=== PATIENT | male | born 1990 | race Caucasian/White ===

== ENCOUNTER 2017-11-02 15:34 | Emergency (ER) | payer SELFPAY ==
[~2017-11-02] VITALS: Ht 188 cm; Wt 120.0 kg
[2017-11-02 15:44] VITALS: BP 122/82; PULSE 89; RESP 14; TEMP 98.2; O2SAT 99
[2017-11-02] MEDS ORDERED: OMEP40CA2 PO (15:51)
[2017-11-02] MEDS ORDERED: oxyCODONE/ACETAMINOPHEN 5 MG/325 MG TAB PO ONE (16:00)
[2017-11-02] MEDS ORDERED: LIDOCAINE 1%/EPINEPHrine 1:100,000 SOLN 20 ML VIAL INFIL ONE (16:00)
[2017-11-02] MEDS ORDERED: TETANUS/DIPHTHERIA TOXOID ADULT 0.5 ML VIAL IM ONE (16:30)
--- NOTE | 2017-11-02 16:30 | PD ---
HPI Chief Complaint: Laceration/Skin Injury Time Seen by Provider: 15:56 Travel History International Travel<30 days: No Contact w/Intl Traveler<30days: No Traveled to known affect area: No History of Present Illness HPI 27yo M with no PMH presents to the ED with c/o right big toe laceration after stepping on something while cleaning the [place] today. Said he does not know what he stepped on. Tetanus not up to date. Denies any fever, chest pain, sob , n/v, abdominal pain, focal weakness or numbness. PFSH Past Medical History GERD: Yes Tetanus Vaccination: Unknown Past Surgical History Other Surgery: Yes (nasal surgery) Social History Alcohol Use: No Tobacco Use: Yes Substance Use: No Allergies-Medications (Allergen,Severity, Reaction): Coded Allergies: No Known Allergies (Unverified , 11/02/17) Reported Meds & Prescriptions Reported Meds & Active Scripts Active Tylenol (Acetaminophen) 325 Mg Tab 650 Mg PO Q6H PRN Doxycycline Hyclate 100 Mg Cap 100 Mg PO BID 10 Days Levofloxacin 750 Mg Tablet 750 Mg PO DAILY 7 Days Keflex (Cephalexin) 500 Mg Cap 500 Mg PO Q6H 7 Days Reported Omeprazole 40 Mg Cap 40 Mg PO DAILY Review of Systems Except as stated in HPI: all other systems reviewed are Neg Physical Exam Narrative GENERAL: 27yo M in mild distress. SKIN: Focused skin assessment warm/dry. HEAD: Atraumatic. Normocephalic. EYES: Pupils equal and round. No scleral icterus. No injection or drainage. CARDIOVASCULAR: Regular rate and rhythm. No murmur appreciated. RESPIRATORY: No accessory muscle use. Clear to auscultation. Breath sounds equal bilaterally. GASTROINTESTINAL: Abdomen soft, non-tender, nondistended. MUSCULOSKELETAL: Right foot: +5 cm medial aspect of 1st toe. DP 2+. Sensation intact. NEUROLOGICAL: Awake and alert. No obvious cranial nerve deficits. Motor grossly within normal limits. Normal speech. PSYCHIATRIC: Appropriate mood and affect; insight and judgment normal. Data Data Last Documented VS Vital Signs Date Time Temp Pulse Resp B/P (MAP) Pulse Ox O2 Delivery O2 Flow Rate FiO2 11/02/17 19:07 11/02/17 15:44 98.2 89 14 99 Orders Orders Lidocai-Epi 1%-1:100,000 Inj (Xylocaine- (11/02/17 16:00) Foot, Limited (2vws) (11/02/17 ) Oxycodone-Acetamin 5-325 Mg (Percocet (11/02/17 16:00) Tetanus/Diphtheria Tox Adult (Tetanus/Di (11/02/17 16:30) Wound Care (11/02/17 16:44) Bupivacaine Pf 0.5% Inj (Marcaine Pf 0.5 (11/02/17 16:45) Lidocaine 1% Inj (50 Ml) (Xylocaine 1% I (11/02/17 16:45) Doxycycline (Vibramycin) (11/02/17 18:45) Cephalexin (Keflex) (11/02/17 18:45) Levofloxacin (Levaquin) (11/02/17 18:45) Ed Discharge Order (11/02/17 18:33) MDM Medical Decision Making Medical Screen Exam Complete: Yes Emergency Medical Condition: Yes Differential Diagnosis Laceration vs. foreign body Narrative Course 27yo M with right big toe laceration after getting it cut on something while barefoot in a [place] for work. No other injuries. Pt given 1 percocet for pain. Xray left foot showed no definite radiopaque foreign boy or acute fracture. Laceration repaired by my PA. Pt was in fresh water mcke[place] and need to cover for vibrio. Will do triple antibiotics. Pt updated on tetanus and given first dose of antibiotics. Return precautions given. Diagnosis Primary Impression: Laceration of toe Qualified Codes: S91.111A - Laceration without foreign body of right great toe without damage to nail, initial encounter Patient Instructions: General Instructions Departure Forms: Tests/Procedures Additional Instructions: Please return to the ED in 10-14 days for suture removal. Return to the ED immediately if you have any signs of infection. Med/Other Pt SpecificInfo: Prescription(s) given Scripts Acetaminophen (Tylenol) 325 Mg Tab 650 MG PO Q6H Y for PAIN SCALE 1 TO 4, #20 TAB 0 Refills Prov: Ele Richardson DO 11/02/17 Doxycycline Hyclate (Doxycycline Hyclate) 100 Mg Cap 100 MG PO BID for Infection for 10 Days, #20 CAP 0 Refills Prov: Ele Richardson DO 11/02/17 Levofloxacin (Levofloxacin) 750 Mg Tablet 750 MG PO DAILY for Infection for 7 Days, #7 TAB 0 Refills Prov: Ele Richardson DO 11/02/17 Cephalexin (Keflex) 500 Mg Cap 500 MG PO Q6H for Infection for 7 Days, #28 CAP 0 Refills Prov: Ele Richardson DO 11/02/17 Disposition: 01 DISCHARGE HOME Condition: Stable Ele Richardson DO Nov 02, 2017 16:30
--- NOTE | 2017-11-02 16:30 | RADRPT ---
EXAM DATE/TIME: 11/02/2017 16:09 [facility] COMPARISON: No previous studies available for comparison. INDICATIONS : Foreign body. Cut on glass. Laceration on first distal phalynx MEDICAL HISTORY : None. SURGICAL HISTORY : None. ENCOUNTER: Initial ACUITY: 1 day PAIN SCORE: 10/10 LOCATION: Right Foot. FINDINGS: Soft tissue laceration and swelling overlying the lateral tip of the left first digit. No definite ra diopaque foreign bodies. Osseous structures appear intact. Joint spaces are maintained. CONCLUSION: 1. No definite radiopaque foreign body or acute fracture. Livan Mckenzie MD on November 02, 2017 at 16:26 Board Certified Radiologist. This report was verified electronically.
[2017-11-02] MEDS ORDERED: BUPIVACAINE HCL PF 0.5% 10 ML VIAL INFIL ONE (16:45)
[2017-11-02] MEDS ORDERED: LIDOCAINE HCL 1% 50 ML VIAL INFIL ONE (16:45)
--- NOTE | 2017-11-02 17:24 | PD ---
Physical Exam Date Seen by Provider: Nov 02, 2017 Time Seen by Provider: 17:22 Narrative 27-year-old male that presents to the ED for violation laceration to the right great toe. I was asked my attending to repair laceration. Please refer to her note. Data Data Last Documented VS Vital Signs Date Time Temp Pulse Resp B/P (MAP) Pulse Ox O2 Delivery O2 Flow Rate FiO2 11/02/17 15:44 98.2 89 14 122/82 (95) 99 Orders Orders Lidocai-Epi 1%-1:100,000 Inj (Xylocaine- (11/02/17 16:00) Foot, Limited (2vws) (11/02/17 ) Oxycodone-Acetamin 5-325 Mg (Percocet (11/02/17 16:00) Tetanus/Diphtheria Tox Adult (Tetanus/Di (11/02/17 16:30) Wound Care (11/02/17 16:44) Bupivacaine Pf 0.5% Inj (Marcaine Pf 0.5 (11/02/17 16:45) Lidocaine 1% Inj (50 Ml) (Xylocaine 1% I (11/02/17 16:45) MDM Medical Record Reviewed: Yes Supervised Visit with JYOTI: No Procedures Procedure Narrative LACERATION LOCATION: right great toe LENGTH: 5 cm NUMBER OF STITCHES/JUAN MANUEL: 15 sutures REPAIR: The area of the laceration was prepped with Betadine and sterilely draped. The laceration was infiltrated with 1% Xylocaine. The wound was copiously irrigated and explored without evidence of foreign body, tendon injury or neurovascular injury. The wound was closed using 4-0 Ethilone. This was a 1 layer repair. A sterile dressing was applied. The patient was advised to keep the dressing clean and dry. Patient tolerated the procedure well. Howard Martinez Nov 02, 2017 17:24
[2017-11-02] MEDS ORDERED: LEVO750T3 PO (18:31)
[2017-11-02] MEDS ORDERED: CEPH-460 PO (18:31)
[2017-11-02] MEDS ORDERED: DOXY100C PO (18:31)
[2017-11-02] MEDS ORDERED: TYLE325T PO (18:32)
[2017-11-02] MEDS ORDERED: DOXYCYCLINE HYCLATE 100 MG CAP PO ONE (18:45)
[2017-11-02] MEDS ORDERED: CEPHALEXIN MONOHYDRATE 500 MG CAP PO ONE (18:45)
[2017-11-02] MEDS ORDERED: LEVOFLOXACIN 750 MG TAB PO ONE (18:45)
== END 2017-11-02 19:09 | disposition home or self-care (01) ==
LOC: NEPE 15:34
DX: S91.111A Laceration without foreign body of right great toe without damage to nail, initial encounter (principal); K21.9 Gastro-esophageal reflux disease without esophagitis; W25.XXXA Contact with sharp glass, initial encounter; Y92.828 Other wilderness area as the place of occurrence of the external cause; Z23 Encounter for immunization; Z72.0 Tobacco use
CPT/HCPCS: 12002; 73620; 90471; 90714